=== PATIENT | male | born 1950 | race Caucasian/White ===

== ENCOUNTER 2017-02-02 06:35 | Emergency (ER) | payer BC ==
[~2017-02-02] VITALS: Ht 182.9 cm; Wt 102.0 kg
[2017-02-02 06:39] VITALS: BP 136/94
[2017-02-02] MEDS ORDERED: INDOMETHACIN 25 MG CAP PO ONE (07:15)
[2017-02-02 07:35] LABS: BASO % 0.2 % (0.0-1.0); EOS # 0.2 K/mm3 (0.0-0.50); EOS % 1.7 % (0.0-3.0); LARGE UNSTAINED CELL # 0.1 K/mm3 (0.0-0.4); LARGE UNSTAINED CELL % 0.7 % (0.0-4.0); LYMPH # 1.3 K/mm3 (1.5-4.5); LYMPH % 13.1 % (24.0-44.0); MEAN CORPUSCULAR HEMOGLOBIN 30.4 pg (27.0-33.0); MEAN CORPUSCULAR HGB CONC 35.1 g/dl (32.0-36.5); MEAN CORPUSCULAR VOLUME 86.6 fl (80.0-96.0); MONO # 0.8 K/mm3 (0.0-0.8); MONO % 7.5 % (0.0-5.0); NEUTROPHILS # 7.7 K/mm3 (1.8-7.7); NEUTROPHILS % 76.8 % (36.0-66.0); PLATELET COUNT, AUTOMATED 235 k/mm3 (150-450); RED CELL DISTRIBUTION WIDTH 13.1 % (11.5-14.5)
[2017-02-02 07:54] LABS: CALCIUM LEVEL 9.2 MG/DL (8.8-10.2); CREATININE FOR GFR 1.42 MG/DL (0.70-1.30); GLOMERULAR FILTRATION RATE 52.8 (>49); POTASSIUM SERUM 4.4 MEQ/L (3.5-5.1); URIC ACID 8.8 MG/DL (3.5-7.2)
[2017-02-02] MEDS ORDERED: COLCHICINE 0.6 MG TAB PO ONE (08:15)
[2017-02-02] MEDS ORDERED: COLC1CAP PO (08:23)
[2017-02-02 08:35] LABS: ERYTHROCYTE SEDIMENTATION RATE 29 mm/hr (0-20)
== END 2017-02-02 08:40 | disposition home or self-care (01) ==
LOC: M ED 06:35
DX: M10.079 Idiopathic gout, unspecified ankle and foot (principal); Z87.891 Personal history of nicotine dependence